=== PATIENT | male | born 1990 | race Caucasian/White ===

== ENCOUNTER → 2019-04-11 | Outpatient (CLI) | payer OTHER ==
[2014-03-31 11:03] VITALS: BP 145/77
--- NOTE | 2019-04-11 19:30 | KCIC ---
Two-view chest HISTORY: Bronchitis. Cough for 4 days. COMPARISON: None FINDINGS: The cardiomediastinal silhouette is not enlarged. No evidence of pneumothorax. No pleural effusion. No evidence of infiltrate. Bones appear grossly intact. IMPRESSION: No evidence of consolidating infiltrate. Electronically signed by: Samy Martinez MD (04/11/2019 5:18 PM) [id number]
== END | disposition home or self-care (01) ==
LOC: KCIC 16:14
PROVIDERS: ATTEND Nurse Practitioner Family
DX: J40 Bronchitis, not specified as acute or chronic (principal); R05 Cough
CPT/HCPCS: 71046